=== PATIENT | female | born 1980 | race African-American/Black ===

== ENCOUNTER 2018-10-07 06:21 | Day surgery (SDC) | payer BC ==
[2018-10-06 15:58] VITALS: BMI 30.9
[2018-10-07] MEDS ORDERED: ceFAZolin SODIUM 1 GM VIAL ONE (07:12)
[2018-10-07] MEDS ORDERED: MIDAZOLAM HCL 2 MG/2 ML SINGLE DOSE VIAL ONE ×3 (07:47→08:26)
[2018-10-07] MEDS ORDERED: ceFAZolin SODIUM 1 GM VIAL IVPB ONE (08:25)
[2018-10-07] MEDS ORDERED: PROPOFOL 20 ML ONE (08:33)
[2018-10-07] MEDS ORDERED: ROCURONIUM BROMIDE 50 MG/5 ML VIAL ONE ×2 (08:34→10:13)
[2018-10-07] MEDS ORDERED: ONDANSETRON 4 MG/2 ML VIAL IVPUSH PRN (14:05)
[2018-10-07] MEDS ORDERED: ACETAMINOPHEN 1000 MG/100 ML VIAL (NON FORMULARY) IVPB ONE (14:06)
[2018-10-07] MEDS ORDERED: LACTATED RINGERS SOLUTION 1,000 ML IV SCH (14:15)
[2018-10-07] MEDS ORDERED: ACETAMINOPHEN INJECTION 100 ML IVPB ONE (14:26)
[2018-10-07] MEDS ORDERED: ONDANSETRON 4 MG/2 ML VIAL ONE (15:28)
[2018-10-07] MEDS ORDERED: oxyCODONE HCL 5 MG TABLET PO ONE ×2 (15:41)
[2018-10-07 18:48] VITALS: BP 127/79; PULSE 90; TEMP 97.8
--- NOTE | 2018-10-08 13:54 | OP ---
DATE OF OPERATION: 10/07/2018 TITLE OF PROCEDURE: Bilateral reduction mammoplasty. PREOPERATIVE DIAGNOSIS: Symptomatic macromastia. POSTOPERATIVE DIAGNOSIS: Symptomatic macromastia. ATTENDING SURGEON: Vasu Freitas MD BINDERY MACHINE OPERATOR: HEAVEN Wynn ANESTHESIA: General endotracheal anesthesia. Patient is seen in the holding area. She is counseled on all risks, benefits and alternatives to the procedure and she understands and agrees to proceed. The patient is marked using an inverted T Mak type reduction pattern. An inferior pedicle was planned. The nipples were sized at 22.5 cm from the sternal notch bilaterally. The patient is awake, aware of all incisions and resulting scars. She was brought to the operating room and placed in the supine position. The position was carefully checked by the surgical and anesthesia teams. After anesthesia was given, sequential compression stockings and MARCIE hose were applied. The patient was given 2 g of Ancef perioperatively. She was prepped and draped in standard surgical fashion. Timeout was called. Patient, procedure, sites, sides are verified. At this point the larger breast was addressed first, which is the left side. The 45 mm cookie cutter is used to trace the nipple areolar complexes, 10 cm width pedicles are traced bilaterally. The certified first assistant and I did deepithelialization of the pedicles simultaneously with the exception of the nipple areolar complex. On the left breast, the superior medial and lateral skin flaps were elevated at 2 cm of skin thickness down to the level of the chest wall. The pedicle was then developed leaving the perforating attachments from deep. A total resection weight of 1409 grams was achieved. Hemostasis was meticulously achieved. The skin is tailor tacked using danette. Attention was then directed toward the right side where mirror-image procedures are performed with the total final resection of 1132 grams. Patient with the skin tailor tacked was brought to a seated upright position where excellent symmetry of size, shape and position is achieved. The wounds were all copiously irrigated with normal saline. Hemostasis is once again meticulously achieved. The size 10 flat CHERRI drains were brought out through the lateral extent of each incision. The inverted T position is closed with a half-buried mattress 2-0 nylon suture. The closure was performed with a series of interrupted buried deep dermal 3-0 Monocryl suture on all areas, followed by running subcuticular 3-0 Monocryl suture. The nipples are inset with the keyhole pattern. The nipples are pink and viable at the end of the procedure. Dressings were placed with Steri-Strips, 4 x 4 and ABD gauze, a surgical bra. The patient awoke from anesthesia having tolerated the procedure well, drains functioning well. VASU FREITAS M.D. [id number]
--- NOTE | 2018-10-11 18:17 | PATH ---
Surgical Pathology Report Patient Name: KENJI GUZMAN Med. Rec. #: [id number] /Age/Gender: 1980 (Age: 38) / F Account: [id number] Location: [facility] SURGICAL Taken: 10/07/2018 Received: 10/10/2018 Reported: 10/11/2018 Physicians: Vasu Freitas Specimen(s) Received A: BREAST, LEFT B: BREAST, RIGHT Clinical History Back pain Final Diagnosis A. BREAST, LEFT, EXCISION: BENIGN BREAST PARENCHYMA AND UNREMARKABLE SKIN. B. BREAST, RIGHT, EXCISION: BENIGN BREAST PARENCHYMA AND UNREMARKABLE SKIN. Electronically Signed Kellen Khalil M.D. Gross Description A. Received in formalin labeled "left breast," is a 1386 g, 25.0 x 15.0 x 9.5 cm aggregate of multiple unoriented portions of fibroadipose tissue and brown, unremarkable skin. Sectioning reveals multifocal white fibrous tissue. Rn Rehab sections are submitted in 3 cassettes. B. Received in formalin labeled "right breast," is a 1087 g, 25.0 x 12.5 x 6.5 cm aggregate of multiple unoriented portions of fibroadipose tissue and brown, unremarkable skin. Sectioning reveals multifocal white fibrous tissue. Rn Rehab sections are submitted in 3 cassettes. /10/10/201810/10/2018
== END 2018-10-07 17:50 | disposition home or self-care (01) ==
LOC: JASU-SURG 06:21
PROVIDERS: ATTEND Plastic Surgery
PROC: 0HBV0ZZ Excision of Bilateral Breast, Open Approach (ICD-10-PCS; principal; 2018-10-07 07:30)
DX: N62 Hypertrophy of breast (principal); M54.89 Other dorsalgia
CPT/HCPCS: 84703; 88305-TC; 94760; J0131